=== PATIENT | female | born 1985 | race Caucasian/White ===

== ENCOUNTER 2022-05-07 08:02 | Outpatient (CLI) | payer OTHER | END 2022-05-07 08:14 | disposition home or self-care (01) | LOC: TOM 08:02 | PROVIDERS: ATTEND Surgery | DX: K43.9 Ventral hernia without obstruction or gangrene (principal) ==

== ENCOUNTER 2022-08-20 06:49 | Day surgery (SDC) | payer OTHER ==
[~2022-08-20 06:49] MED LIST: LOTREL 5-10 MG1 CAP PO; OZEMPIC0.25 MG/0.
== END 2022-08-20 13:40 | disposition home or self-care (01) ==
LOC: CIR.AMB 06:49
PROVIDERS: ATTEND Surgery
DX: K43.6 Other and unspecified ventral hernia with obstruction, without gangrene (principal); I10 Essential (primary) hypertension; F17.210 Nicotine dependence, cigarettes, uncomplicated; F12.90 Cannabis use, unspecified, uncomplicated; Z20.822 Contact with and (suspected) exposure to COVID-19
CPT/HCPCS: 49594; C1781

== ENCOUNTER → 2024-01-21 11:23 | Outpatient (CLI) | payer OTHER ==
[2024-01-21 12:48] LABS: PH,URINE 5.5 (5.0-8.0); URINE APPEARANCE Clear; URINE BILIRRUBIN Negative (NEGATIVE); URINE BLOOD Negative; URINE COLOR Yellow; URINE LEUKOCYTE Negative; URINE NITRATE Negative; URINE PROTEIN Negative (NEGATIVE); URINE UROBILINOGEN 0.2 E.U./dl
[2024-01-21 12:49] LABS: URINE RBC 8.3 uL (0.0-20.8); URINE WBC 6.9 uL (0.0-23.2)
[2024-01-21 12:51] LABS: URINE GLUCOSE 500 MG/DL (NEGATIVE)
[2024-01-26 13:06] LABS: hav igm Negative (Negative); hcv Non Reactive (Non Reactive); hep b c Negative (Negative)
== END | disposition home or self-care (01) ==
LOC: LAB 11:23
PROVIDERS: ATTEND Internal Medicine
DX: K43.6 Other and unspecified ventral hernia with obstruction, without gangrene (principal); E03.9 Hypothyroidism, unspecified; E11.51 Type 2 diabetes mellitus with diabetic peripheral angiopathy without gangrene; E11.9 Type 2 diabetes mellitus without complications; E55.9 Vitamin D deficiency, unspecified; E66.8 Other obesity; E78.9 Disorder of lipoprotein metabolism, unspecified; I10 Essential (primary) hypertension